=== PATIENT | male | born 1935 | race African-American/Black ===

== ENCOUNTER 2017-05-16 20:11 | Inpatient (IN) ==
[2017-05-16 22:22] LABS: INR 1.2; PT Patient Result 12.2 SECS; Partial Thromboplastin Time 28.5 SECS (0-40)
[2017-05-16 22:40] LABS: Basophils % 0.6 % (0.0-0.8); Eosinophils # 0.1 10*3/uL (0.0-0.87); Eosinophils % 2.2 % (0.00-10.9); Hematocrit 37.7 VOL% (42.0-52.0); Hemoglobin 11.8 GM/DL (14.0-18.0); Immature Granulocytes % 0.6 %; Immature Granulocytes Absolute 0.03 #; Lymphocytes # 0.7 10*3/uL (1.4-4.0); Lymphocytes % 12.4 % (21.2-54.2); Mean Corpuscular HGB Conc 31.3 GM/DL (32-36); Mean Corpuscular Hemoglobin 27 PG (27-34); Mean Corpuscular Volume 84.5 FL (87-102); Mean Platelet Volume 10.6 FL (9.6-12.0); Monocytes # 0.5 10*3/uL (0.11-0.8); Monocytes % 8.9 % (1.7-12.7); Neutrophils # 4.1 10*3/uL (1.4-7.4); Neutrophils % 75.3 % (38.7-73.9); Platelet Count 145 T/CUMM (130-400); Red Blood Count 4.46 MC/CUMM (3.8-5.5); Red Cell Distribution Width 19.8 % (9.3-17.3); White Blood Count 5.4 T/CUMM (4-12)
[2017-05-16 23:12] LABS: Bilirubin,Total 0.4 MG/DL (0.2-1.0); Calcium 9.2 MG/DL (8.5-10.1); Total Protein 7.1 G/DL (6.4-8.3)
[2017-05-16 23:13] LABS: Albumin 2.6 G/DL (3.4-5.0); CKMB % 1.3 %; Osmolality,Calculated 294.8 MOS/KG (273-304); Potassium 4.8 MMOL/L (3.5-5.1); Troponin I Only 0.285 NG/ML (0.00-0.045)
[2017-05-17 00:03] LABS: Anisocytosis 1+; Poikilocytosis 1+
[2017-05-17] MEDS ORDERED: NITROGLYCERIN 2% OINT 1 INCH/GM PACK TOP STA (01:28)
[2017-05-17] MEDS ORDERED: FUROSEMIDE 40 MG/4 ML VIAL IV ONE (01:28)
[2017-05-17] MEDS ORDERED: FUROSEMIDE 40 MG/4 ML VIAL ONE (02:18)
[2017-05-17] MEDS ORDERED: NITROGLYCERIN 2% OINT 1 INCH/GM PACK TOP ONE (02:18)
[2017-05-17] MEDS ORDERED: ENOXAPARIN 30 MG/0.3 ML SYRINGE ONE (05:12)
[2017-05-17] MEDS ORDERED: ASPIRIN 325 MG TABLET ONE (05:12)
[2017-05-17] MEDS ORDERED: ENOXAPARIN 30 MG/0.3 ML SYRINGE SUBCUT STA (05:23)
[2017-05-17] MEDS ORDERED: ASPIRIN 325 MG TABLET PO STA (05:24)
[2017-05-17] MEDS ORDERED: ACETAMINOPHEN 325 MG TABLET PO PRN (10:10)
[2017-05-17] MEDS ORDERED: ONDANSETRON 4 MG/2 ML VIAL IV PRN (10:10)
[2017-05-17] MEDS ORDERED: GLUCAGON 1 MG VIAL IM PRN (10:10)
[2017-05-17] MEDS ORDERED: MORPHINE 2 MG/1 ML SYRINGE IV PRN (10:10)
[2017-05-17] MEDS ORDERED: LEVOFLOXACIN INJ 750 MG in PREMIX 1 EACH IV SCH (12:00)
[2017-05-17] MEDS: DOCUSATE SODIUM 100 MG CAPSULE PO SCH ×2 (12:18→21:01)
[2017-05-17] MEDS: DOXAZOSIN 4 MG TABLET PO SCH (12:18)
[2017-05-17] MEDS: CARVEDILOL 25 MG TABLET PO SCH ×2 (12:18→21:01)
[2017-05-17] MEDS: OLMESARTAN 20 MG TABLET PO SCH (12:18)
[2017-05-17] MEDS: INSULIN REGULAR 100 UNIT/ML SUBCUT SCH ×4 (12:18→21:06)
[2017-05-17] MEDS: PANTOPRAZOLE 40 MG TABLET PO SCH (12:18)
[2017-05-17] MEDS: ENOXAPARIN 30 MG/0.3 ML SYRINGE SUBCUT SCH (12:20)
[2017-05-17] MEDS: MINOXIDIL 10 MG TABLET PO SCH (12:29)
[2017-05-17] MEDS: CALCIUM ACETATE 667 MG CAPSULE PO SCH ×2 (15:32→21:00)
[2017-05-17] MEDS: CINACALCET 30 MG TABLET PO SCH (21:00)
[2017-05-17] MEDS: ATORVASTATIN 10 MG TABLET PO SCH (21:01)
[2017-05-17] MEDS: BIMATOPROST 0.01% OPH SOLN 2.5 ML BOTTLE BOTH EYES SCH (21:04)
[2017-05-18 06:15] LABS: Risk Ratio 2.43
[2017-05-18] MEDS ORDERED: OLMESARTAN 20 MG TABLET PO SCH (09:00)
[2017-05-18] MEDS ORDERED: MINOXIDIL 10 MG TABLET PO SCH (09:00)
[2017-05-18] MEDS ORDERED: DOXAZOSIN 4 MG TABLET PO SCH (09:00)
[2017-05-18] MEDS: INSULIN REGULAR 100 UNIT/ML SUBCUT SCH ×4 (11:44→21:50)
[2017-05-18] MEDS: OLMESARTAN 20 MG TABLET PO SCH (11:55)
[2017-05-18] MEDS: CALCIUM ACETATE 667 MG CAPSULE PO SCH ×3 (11:55→21:50)
[2017-05-18] MEDS: CARVEDILOL 25 MG TABLET PO SCH ×2 (11:56→21:49)
[2017-05-18] MEDS: DOXAZOSIN 4 MG TABLET PO SCH (11:56)
[2017-05-18] MEDS: PANTOPRAZOLE 40 MG TABLET PO SCH (11:56)
[2017-05-18] MEDS: DOCUSATE SODIUM 100 MG CAPSULE PO SCH ×2 (11:56→21:48)
[2017-05-18] MEDS: MINOXIDIL 10 MG TABLET PO SCH (11:56)
[2017-05-18] MEDS: ENOXAPARIN 30 MG/0.3 ML SYRINGE SUBCUT SCH (11:57)
[2017-05-18] MEDS: CINACALCET 30 MG TABLET PO SCH (21:42)
[2017-05-18] MEDS: ATORVASTATIN 10 MG TABLET PO SCH (21:49)
[2017-05-18] MEDS: BIMATOPROST 0.01% OPH SOLN 2.5 ML BOTTLE BOTH EYES SCH (21:54)
[2017-05-19] MEDS: DEXTROSE 50% 25 GM/50 ML VIAL IV PRN ×2 (00:38→01:32)
[2017-05-19 06:17] LABS: Calcium 9.2 MG/DL (8.5-10.1); Magnesium 2.2 MG/DL (1.8-2.4); Osmolality,Calculated 280.8 MOS/KG (273-304); Potassium 4.4 MMOL/L (3.5-5.1)
[2017-05-19] MEDS ORDERED: VANCOMYCIN INJ 500 MG in SODIUM CHLORIDE 0.9% 100 ML IV PRN (08:12)
[2017-05-19] MEDS: INSULIN REGULAR 100 UNIT/ML SUBCUT SCH ×4 (08:31→23:24)
[2017-05-19] MEDS: DOXAZOSIN 4 MG TABLET PO SCH (09:44)
[2017-05-19] MEDS: MINOXIDIL 10 MG TABLET PO SCH (09:44)
[2017-05-19] MEDS: CALCIUM ACETATE 667 MG CAPSULE PO SCH ×3 (09:45→21:45)
[2017-05-19] MEDS: DOCUSATE SODIUM 100 MG CAPSULE PO SCH ×2 (09:45→21:40)
[2017-05-19] MEDS: PANTOPRAZOLE 40 MG TABLET PO SCH (09:45)
[2017-05-19] MEDS: CARVEDILOL 25 MG TABLET PO SCH ×2 (09:46→21:40)
[2017-05-19] MEDS: ENOXAPARIN 30 MG/0.3 ML SYRINGE SUBCUT SCH (09:46)
[2017-05-19] MEDS: OLMESARTAN 20 MG TABLET PO SCH (09:46)
[2017-05-19] MEDS ORDERED: VANCOMYCIN INJ 1,250 MG in SODIUM CHLORIDE 0.45% 250 ML IV ONE (10:00)
[2017-05-19] MEDS: LEVOFLOXACIN INJ 500 MG in PREMIX 1 EACH IV SCH (11:29)
[2017-05-19] MEDS: ATORVASTATIN 10 MG TABLET PO SCH (21:40)
[2017-05-19] MEDS: CINACALCET 30 MG TABLET PO SCH (21:44)
[2017-05-19] MEDS: BIMATOPROST 0.01% OPH SOLN 2.5 ML BOTTLE BOTH EYES SCH (21:48)
[2017-05-20] MEDS: INSULIN REGULAR 100 UNIT/ML SUBCUT SCH ×4 (08:10→20:45)
[2017-05-20] MEDS: DOXAZOSIN 4 MG TABLET PO SCH (08:10)
[2017-05-20] MEDS: MINOXIDIL 10 MG TABLET PO SCH (08:11)
[2017-05-20] MEDS: OLMESARTAN 20 MG TABLET PO SCH (08:11)
[2017-05-20] MEDS: PANTOPRAZOLE 40 MG TABLET PO SCH (08:11)
[2017-05-20] MEDS: DOCUSATE SODIUM 100 MG CAPSULE PO SCH ×2 (08:11→20:45)
[2017-05-20] MEDS: CARVEDILOL 25 MG TABLET PO SCH ×2 (08:11→20:45)
[2017-05-20] MEDS: ENOXAPARIN 30 MG/0.3 ML SYRINGE SUBCUT SCH (09:08)
[2017-05-20] MEDS: CALCIUM ACETATE 667 MG CAPSULE PO SCH ×3 (09:08→20:44)
[2017-05-20] MEDS: CINACALCET 30 MG TABLET PO SCH (20:44)
[2017-05-20] MEDS: ATORVASTATIN 10 MG TABLET PO SCH (20:45)
[2017-05-20] MEDS: BIMATOPROST 0.01% OPH SOLN 2.5 ML BOTTLE BOTH EYES SCH (20:51)
[2017-05-21] MEDS: INSULIN REGULAR 100 UNIT/ML SUBCUT SCH ×4 (08:38→20:34)
[2017-05-21] MEDS: DOCUSATE SODIUM 100 MG CAPSULE PO SCH ×2 (08:39→20:34)
[2017-05-21] MEDS: PANTOPRAZOLE 40 MG TABLET PO SCH (08:39)
[2017-05-21] MEDS: CALCIUM ACETATE 667 MG CAPSULE PO SCH ×3 (08:39→20:33)
[2017-05-21] MEDS: CARVEDILOL 25 MG TABLET PO SCH ×2 (08:39→20:34)
[2017-05-21] MEDS: DOXAZOSIN 4 MG TABLET PO SCH (08:39)
[2017-05-21] MEDS: OLMESARTAN 20 MG TABLET PO SCH (08:39)
[2017-05-21] MEDS: MINOXIDIL 10 MG TABLET PO SCH (08:43)
[2017-05-21] MEDS: ENOXAPARIN 30 MG/0.3 ML SYRINGE SUBCUT SCH (09:09)
[2017-05-21] MEDS: LEVOFLOXACIN INJ 500 MG in PREMIX 1 EACH IV SCH (12:28)
[2017-05-21 14:29] LABS: Basophils % 0.5 % (0.0-0.8); Eosinophils # 0.2 10*3/uL (0.0-0.87); Hematocrit 30.3 VOL% (42.0-52.0); Hemoglobin 9.5 GM/DL (14.0-18.0); Immature Granulocytes % 0.7 %; Immature Granulocytes Absolute 0.03 #; Lymphocytes # 0.7 10*3/uL (1.4-4.0); Lymphocytes % 16.1 % (21.2-54.2); Mean Corpuscular HGB Conc 31.4 GM/DL (32-36); Mean Corpuscular Hemoglobin 27 PG (27-34); Mean Corpuscular Volume 85.8 FL (87-102); Mean Platelet Volume 11.6 FL (9.6-12.0); Monocytes # 0.4 10*3/uL (0.11-0.8); Monocytes % 8.9 % (1.7-12.7); Neutrophils # 2.8 10*3/uL (1.4-7.4); Neutrophils % 69.8 % (38.7-73.9); Platelet Count 116 T/CUMM (130-400); Red Blood Count 3.53 MC/CUMM (3.8-5.5)
[2017-05-21 14:50] LABS: Albumin 2.5 G/DL (3.4-5.0); Bilirubin,Total 0.4 MG/DL (0.2-1.0); Calcium 7.9 MG/DL (8.5-10.1); Potassium 4.6 MMOL/L (3.5-5.1); Total Protein 7.1 G/DL (6.4-8.3)
[2017-05-21] MEDS: ASPIRIN EC 81 MG TABLET PO SCH (17:37)
[2017-05-21] MEDS: CINACALCET 30 MG TABLET PO SCH (20:33)
[2017-05-21] MEDS: ATORVASTATIN 80 MG TABLET PO SCH (20:34)
[2017-05-21] MEDS: BIMATOPROST 0.01% OPH SOLN 2.5 ML BOTTLE BOTH EYES SCH (20:36)
[2017-05-21] MEDS: DEXTROSE 50% 25 GM/50 ML VIAL IV PRN (23:04)
[2017-05-22] MEDS: INSULIN REGULAR 100 UNIT/ML SUBCUT SCH ×4 (11:33→22:04)
[2017-05-22] MEDS ORDERED: VANCOMYCIN INJ 500 MG in SODIUM CHLORIDE 0.9% 100 ML IV ONE (12:00)
[2017-05-22] MEDS: CALCIUM ACETATE 667 MG CAPSULE PO SCH ×3 (14:28→21:58)
[2017-05-22] MEDS: DOXAZOSIN 4 MG TABLET PO SCH (16:02)
[2017-05-22] MEDS: DOCUSATE SODIUM 100 MG CAPSULE PO SCH ×2 (16:03→21:58)
[2017-05-22] MEDS: MINOXIDIL 10 MG TABLET PO SCH (16:03)
[2017-05-22] MEDS: OLMESARTAN 20 MG TABLET PO SCH (16:03)
[2017-05-22] MEDS: PANTOPRAZOLE 40 MG TABLET PO SCH (16:04)
[2017-05-22] MEDS: ENOXAPARIN 30 MG/0.3 ML SYRINGE SUBCUT SCH (16:04)
[2017-05-22] MEDS: ASPIRIN EC 81 MG TABLET PO SCH (16:04)
[2017-05-22] MEDS: CARVEDILOL 25 MG TABLET PO SCH (16:06)
[2017-05-22] MEDS: ATORVASTATIN 80 MG TABLET PO SCH (21:58)
[2017-05-22] MEDS: CINACALCET 30 MG TABLET PO SCH (21:59)
[2017-05-22] MEDS: BIMATOPROST 0.01% OPH SOLN 2.5 ML BOTTLE BOTH EYES SCH (22:02)
[2017-05-23] MEDS: CARVEDILOL 25 MG TABLET PO SCH ×3 (05:33→22:06)
[2017-05-23] MEDS: MINOXIDIL 10 MG TABLET PO SCH (09:40)
[2017-05-23] MEDS: OLMESARTAN 20 MG TABLET PO SCH (09:40)
[2017-05-23] MEDS: DOXAZOSIN 4 MG TABLET PO SCH (09:40)
[2017-05-23] MEDS: CALCIUM ACETATE 667 MG CAPSULE PO SCH ×3 (09:41→21:37)
[2017-05-23] MEDS: PANTOPRAZOLE 40 MG TABLET PO SCH (09:41)
[2017-05-23] MEDS: DOCUSATE SODIUM 100 MG CAPSULE PO SCH ×2 (09:41→21:35)
[2017-05-23] MEDS: INSULIN REGULAR 100 UNIT/ML SUBCUT SCH ×4 (09:42→22:06)
[2017-05-23] MEDS: ASPIRIN EC 81 MG TABLET PO SCH (09:42)
[2017-05-23] MEDS: LEVOFLOXACIN INJ 500 MG in PREMIX 1 EACH IV SCH (13:43)
[2017-05-23] MEDS: CINACALCET 30 MG TABLET PO SCH (21:36)
[2017-05-23] MEDS: ATORVASTATIN 80 MG TABLET PO SCH (21:36)
[2017-05-23] MEDS: BIMATOPROST 0.01% OPH SOLN 2.5 ML BOTTLE BOTH EYES SCH (21:39)
[2017-05-24] MEDS: CARVEDILOL 25 MG TABLET PO SCH ×2 (10:48→20:57)
[2017-05-24] MEDS: DOCUSATE SODIUM 100 MG CAPSULE PO SCH ×2 (10:48→20:56)
[2017-05-24] MEDS: PANTOPRAZOLE 40 MG TABLET PO SCH (10:48)
[2017-05-24] MEDS: MINOXIDIL 10 MG TABLET PO SCH (10:48)
[2017-05-24] MEDS: ASPIRIN EC 81 MG TABLET PO SCH (10:48)
[2017-05-24] MEDS: CALCIUM ACETATE 667 MG CAPSULE PO SCH ×3 (10:48→20:56)
[2017-05-24] MEDS: DOXAZOSIN 4 MG TABLET PO SCH (10:48)
[2017-05-24] MEDS: OLMESARTAN 20 MG TABLET PO SCH (10:48)
[2017-05-24] MEDS: INSULIN REGULAR 100 UNIT/ML SUBCUT SCH ×4 (10:48→21:14)
[2017-05-24] MEDS: BIMATOPROST 0.01% OPH SOLN 2.5 ML BOTTLE BOTH EYES SCH (20:56)
[2017-05-24] MEDS: ATORVASTATIN 80 MG TABLET PO SCH (20:56)
[2017-05-24] MEDS: CINACALCET 30 MG TABLET PO SCH (20:57)
[2017-05-25] MEDS: INSULIN REGULAR 100 UNIT/ML SUBCUT SCH ×4 (07:30→21:57)
[2017-05-25] MEDS: MINOXIDIL 10 MG TABLET PO SCH (09:49)
[2017-05-25] MEDS: OLMESARTAN 20 MG TABLET PO SCH (09:49)
[2017-05-25] MEDS: PANTOPRAZOLE 40 MG TABLET PO SCH (09:49)
[2017-05-25] MEDS: DOXAZOSIN 4 MG TABLET PO SCH (09:49)
[2017-05-25] MEDS: ASPIRIN EC 81 MG TABLET PO SCH (09:49)
[2017-05-25] MEDS: CALCIUM ACETATE 667 MG CAPSULE PO SCH ×3 (09:49→21:58)
[2017-05-25] MEDS: CARVEDILOL 25 MG TABLET PO SCH ×2 (09:50→21:59)
[2017-05-25] MEDS: DOCUSATE SODIUM 100 MG CAPSULE PO SCH ×2 (09:50→21:59)
[2017-05-25] MEDS: LEVOFLOXACIN INJ 500 MG in PREMIX 1 EACH IV SCH (12:00)
[2017-05-25] MEDS: ATORVASTATIN 80 MG TABLET PO SCH (21:59)
[2017-05-25] MEDS: CINACALCET 30 MG TABLET PO SCH (22:00)
[2017-05-25] MEDS: BIMATOPROST 0.01% OPH SOLN 2.5 ML BOTTLE BOTH EYES SCH (22:02)
[2017-05-26] MEDS: INSULIN REGULAR 100 UNIT/ML SUBCUT SCH ×4 (08:06→20:32)
[2017-05-26] MEDS: CARVEDILOL 25 MG TABLET PO SCH ×2 (10:18→21:04)
[2017-05-26] MEDS: CALCIUM ACETATE 667 MG CAPSULE PO SCH ×3 (10:19→21:05)
[2017-05-26] MEDS: PANTOPRAZOLE 40 MG TABLET PO SCH (10:19)
[2017-05-26] MEDS: DOXAZOSIN 4 MG TABLET PO SCH (10:19)
[2017-05-26] MEDS: MINOXIDIL 10 MG TABLET PO SCH (10:19)
[2017-05-26] MEDS: DOCUSATE SODIUM 100 MG CAPSULE PO SCH ×2 (10:19→21:05)
[2017-05-26] MEDS: OLMESARTAN 20 MG TABLET PO SCH (10:19)
[2017-05-26] MEDS: CLOPIDOGREL 75 MG TABLET PO SCH (10:19)
[2017-05-26] MEDS: BIMATOPROST 0.01% OPH SOLN 2.5 ML BOTTLE BOTH EYES SCH (21:05)
[2017-05-26] MEDS: ATORVASTATIN 80 MG TABLET PO SCH (21:05)
[2017-05-26] MEDS: CINACALCET 30 MG TABLET PO SCH (21:05)
[2017-05-27] MEDS ORDERED: CARVEDILOL 12.5 MG TABLET PO SCH (07:53)
[2017-05-27] MEDS: INSULIN REGULAR 100 UNIT/ML SUBCUT SCH ×2 (10:58→13:42)
[2017-05-27] MEDS ORDERED: TUBERCULIN SKIN TEST 0.1 ML SYRINGE INTRADERM ONE (12:38)
[2017-05-27] MEDS: DOXAZOSIN 4 MG TABLET PO SCH (13:23)
[2017-05-27] MEDS: PANTOPRAZOLE 40 MG TABLET PO SCH (13:24)
[2017-05-27] MEDS: DOCUSATE SODIUM 100 MG CAPSULE PO SCH (13:24)
[2017-05-27] MEDS: MINOXIDIL 10 MG TABLET PO SCH (13:24)
[2017-05-27] MEDS: CALCIUM ACETATE 667 MG CAPSULE PO SCH (13:24)
[2017-05-27] MEDS: OLMESARTAN 20 MG TABLET PO SCH (13:24)
[2017-05-27] MEDS: CLOPIDOGREL 75 MG TABLET PO SCH (13:24)
[2017-05-27 13:41] VITALS: BP 133/60
[2017-05-27] MEDS: LEVOFLOXACIN INJ 500 MG in PREMIX 1 EACH IV SCH (13:43)
[2017-05-27 16:08] LABS: Hepatitis B Surface Ag Quant < 0.10 Index; Hepatitis B Surface Ag Result Negative (Negative)
== END 2017-05-27 15:11 | disposition swing bed (61) | DRG 682 ==
LOC: N.ED 20:11 → SUATTDRO 05-17 01:44 → N.EDINP 05-17 01:44 → N.4E 05-17 09:45
PROVIDERS: ADMIT Internal Medicine Infectious Disease; ATTEND Internal Medicine

== ENCOUNTER 2017-05-30 12:06 | Inpatient (IN) ==
[2017-05-30] MEDS ORDERED: SODIUM CHLORIDE 0.9% 250 ML IV STA (13:45)
[2017-05-30 13:55] LABS: Basophils % 0.5 % (0.0-0.8); Eosinophils # 0.1 10*3/uL (0.0-0.87); Eosinophils % 1.6 % (0.00-10.9); Hematocrit 29.8 VOL% (42.0-52.0); Hemoglobin 9.2 GM/DL (14.0-18.0); Immature Granulocytes % 0.5 %; Immature Granulocytes Absolute 0.02 #; Lymphocytes # 0.5 10*3/uL (1.4-4.0); Lymphocytes % 12.6 % (21.2-54.2); Mean Corpuscular HGB Conc 30.9 GM/DL (32-36); Mean Corpuscular Hemoglobin 27 PG (27-34); Mean Corpuscular Volume 86.1 FL (87-102); Mean Platelet Volume 11.3 FL (9.6-12.0); Monocytes # 0.5 10*3/uL (0.11-0.8); Monocytes % 10.7 % (1.7-12.7); Neutrophils # 3.2 10*3/uL (1.4-7.4); Neutrophils % 74.1 % (38.7-73.9); Platelet Count 111 T/CUMM (130-400); Red Blood Count 3.46 MC/CUMM (3.8-5.5); Red Cell Distribution Width 19.6 % (9.3-17.3); White Blood Count 4.3 T/CUMM (4-12)
[2017-05-30 14:02] LABS: INR 1.2; PT Patient Result 12.2 SECS
[2017-05-30 14:18] LABS: Albumin 2.7 G/DL (3.4-5.0); Bilirubin,Total 0.4 MG/DL (0.2-1.0); Calcium 8.2 MG/DL (8.5-10.1); Magnesium 2.1 MG/DL (1.8-2.4); Osmolality,Calculated 281.1 MOS/KG (273-304); Potassium 4.7 MMOL/L (3.5-5.1); Total Protein 7.5 G/DL (6.4-8.3)
[2017-05-30 14:35] LABS: Troponin I Only 0.591 NG/ML (0.00-0.045)
[2017-05-30] MEDS ORDERED: ALBUTEROL 2.5 MG/3 ML NEB RESP TX PRN (17:21)
[2017-05-30] MEDS ORDERED: ONDANSETRON 4 MG/2 ML VIAL IV PRN (17:21)
[2017-05-30] MEDS ORDERED: GLUCAGON 1 MG VIAL IM PRN (17:31)
[2017-05-30] MEDS: SODIUM CHLORIDE 0.9% 1,000 ML IV SCH (19:56)
[2017-05-30] MEDS: INSULIN REGULAR 100 UNIT/ML SUBCUT SCH (20:40)
[2017-05-30] MEDS: PANTOPRAZOLE 40 MG VIAL IV SCH (21:16)
[2017-05-31] MEDS: INSULIN REGULAR 100 UNIT/ML SUBCUT SCH ×4 (00:22→18:48)
[2017-05-31] MEDS: DOPamine 800 MG/250 ML PREMIX IV SCH ×2 (00:22→21:29)
[2017-05-31 00:53] LABS: ABG Base Excess -1.8 MMOL/L (-2.5-2.5); ABG HCO3 22.2 MMOL/L (20-26); ABG Oxygen Saturation 94.8 % (95-100); ABG PCO2 34.5 MM HG (35-48); ABG PH 7.426 (7.35-7.45); ABG PO2 85.9 MM HG (80-95); ABG TCO2 23.2 MMOL/L (23-27)
[2017-05-31 01:34] LABS: Basophils % 0.2 % (0.0-0.8); Eosinophils % 0.1 % (0.00-10.9); Hematocrit 29.1 VOL% (42.0-52.0); Hemoglobin 8.8 GM/DL (14.0-18.0); Immature Granulocytes % 1.1 %; Immature Granulocytes Absolute 0.09 #; Lymphocytes # 0.4 10*3/uL (1.4-4.0); Lymphocytes % 4.8 % (21.2-54.2); Mean Corpuscular HGB Conc 30.2 GM/DL (32-36); Mean Corpuscular Hemoglobin 26 PG (27-34); Mean Corpuscular Volume 87.1 FL (87-102); Mean Platelet Volume 11.6 FL (9.6-12.0); Monocytes # 0.8 10*3/uL (0.11-0.8); Monocytes % 9.9 % (1.7-12.7); Neutrophils # 6.7 10*3/uL (1.4-7.4); Neutrophils % 83.9 % (38.7-73.9); Platelet Count 98 T/CUMM (130-400); Red Blood Count 3.34 MC/CUMM (3.8-5.5); Red Cell Distribution Width 19.6 % (9.3-17.3); White Blood Count 8.1 T/CUMM (4-12)
[2017-05-31 01:42] LABS: CKMB % 0.9 %
[2017-05-31 01:54] LABS: Albumin 2.9 G/DL (3.4-5.0); Bilirubin,Total 0.8 MG/DL (0.2-1.0); Calcium 7.6 MG/DL (8.5-10.1); Potassium 5.5 MMOL/L (3.5-5.1); Risk Ratio 1.89; Total Protein 7.4 G/DL (6.4-8.3); VLDL CHOLESTEROL 15.6 MG/DL
[2017-05-31 02:00] LABS: Troponin I Only 1.12 NG/ML (0.00-0.045)
[2017-05-31 02:59] LABS: Band Neutrophils 13 % (0-10); Lymphocytes 4 % (20-55); Poikilocytosis 2+; Segmented Neutrophils 74 % (50-85); Total Cells Counted 100
[2017-05-31 03:00] LABS: Acanthocytes 1+; Anisocytosis 1+
[2017-05-31] MEDS: SODIUM CHLORIDE 0.9% 1,000 ML IV SCH ×2 (07:49→09:36)
[2017-05-31] MEDS: CALCIUM ACETATE 667 MG CAPSULE PO SCH ×3 (08:02→18:04)
[2017-05-31] MEDS ORDERED: OLMESARTAN 20 MG TABLET PO SCH (09:00)
[2017-05-31] MEDS ORDERED: MINOXIDIL 10 MG TABLET PO SCH (09:00)
[2017-05-31] MEDS: ASPIRIN EC 81 MG TABLET PO SCH (09:36)
[2017-05-31 10:12] LABS: Troponin I Only 2.79 NG/ML (0.00-0.045)
[2017-05-31 13:45] LABS: Troponin I Only 2.86 NG/ML (0.00-0.045)
[2017-05-31 14:25] LABS: Hepatitis A Ab IgM Quant 0.09 Index; Hepatitis A Ab IgM Result Negative (Negative); Hepatitis B Core IgM Quant 0.08 Index; Hepatitis B Core IgM Result Negative (Negative); Hepatitis B Surface Ag Quant < 0.10 Index; Hepatitis B Surface Ag Result Negative (Negative); Hepatitis C Virus Ab Quant 0.03 Index; Hepatitis C Virus Ab Result Negative (Negative)
[2017-05-31] MEDS: PANTOPRAZOLE 40 MG VIAL IV SCH (18:30)
[2017-06-01] MEDS: DOPamine 800 MG/250 ML PREMIX IV SCH (01:44)
[2017-06-01] MEDS: INSULIN REGULAR 100 UNIT/ML SUBCUT SCH ×4 (01:44→19:11)
[2017-06-01 03:47] LABS: Basophils % 0.1 % (0.0-0.8); Eosinophils # 0.1 10*3/uL (0.0-0.87); Eosinophils % 1.5 % (0.00-10.9); Hematocrit 28.5 VOL% (42.0-52.0); Hemoglobin 9.3 GM/DL (14.0-18.0); Immature Granulocytes % 0.7 %; Immature Granulocytes Absolute 0.05 #; Lymphocytes # 0.4 10*3/uL (1.4-4.0); Lymphocytes % 6.6 % (21.2-54.2); Mean Corpuscular HGB Conc 32.6 GM/DL (32-36); Mean Corpuscular Hemoglobin 27 PG (27-34); Mean Corpuscular Volume 83.1 FL (87-102); Monocytes # 0.5 10*3/uL (0.11-0.8); Monocytes % 6.7 % (1.7-12.7); NRBC # 0.03 10*3/uL; Neutrophils # 5.6 10*3/uL (1.4-7.4); Neutrophils % 84.4 % (38.7-73.9); Red Blood Count 3.43 MC/CUMM (3.8-5.5); Red Cell Distribution Width 19.9 % (9.3-17.3); White Blood Count 6.7 T/CUMM (4-12)
[2017-06-01 03:57] LABS: Platelet Count 109 T/CUMM (130-400)
[2017-06-01] MEDS: SODIUM CHLORIDE 0.9% 1,000 ML IV SCH ×2 (04:09→06:34)
[2017-06-01 04:20] LABS: Osmolality,Calculated 289.1 MOS/KG (273-304); Potassium 5.7 MMOL/L (3.5-5.1)
[2017-06-01 04:28] LABS: Albumin 2.8 G/DL (3.4-5.0); Bilirubin,Direct 0.21 MG/DL (0.0-0.20); Bilirubin,Total 1.2 MG/DL (0.2-1.0); Total Protein 7.2 G/DL (6.4-8.3)
[2017-06-01 04:50] LABS: Burr Cells 1+; Platelet Estimate Normal
[2017-06-01 04:51] LABS: Hypochromasia Slight; Ovalocytes 1+
[2017-06-01 04:56] LABS: Calcium 6.9 MG/DL (8.5-10.1); Osmolality,Calculated 293.8 MOS/KG (273-304); Potassium 5.8 MMOL/L (3.5-5.1)
[2017-06-01] MEDS: DEXTROSE 50% 25 GM/50 ML VIAL IV PRN (06:24)
[2017-06-01] MEDS: ASPIRIN EC 81 MG TABLET PO SCH (08:59)
[2017-06-01] MEDS: CALCIUM ACETATE 667 MG CAPSULE PO SCH ×3 (08:59→18:30)
[2017-06-01] MEDS: PANTOPRAZOLE 40 MG VIAL IV SCH (18:31)
[2017-06-02] MEDS: INSULIN REGULAR 100 UNIT/ML SUBCUT SCH ×4 (01:12→18:23)
[2017-06-02] MEDS: SODIUM CHLORIDE 0.9% 1,000 ML IV SCH ×3 (01:33→21:35)
[2017-06-02] MEDS: DOPamine 800 MG/250 ML PREMIX IV SCH (02:50)
[2017-06-02 07:53] LABS: Calcium 7.2 MG/DL (8.5-10.1); Osmolality,Calculated 284.1 MOS/KG (273-304); Potassium 5.1 MMOL/L (3.5-5.1)
[2017-06-02 08:20] LABS: Basophils % 0.2 % (0.0-0.8); Eosinophils # 0.1 10*3/uL (0.0-0.87); Eosinophils % 2.2 % (0.00-10.9); Hematocrit 27.7 VOL% (42.0-52.0); Immature Granulocytes % 0.6 %; Immature Granulocytes Absolute 0.03 #; Lymphocytes # 0.4 10*3/uL (1.4-4.0); Lymphocytes % 7.4 % (21.2-54.2); Mean Corpuscular HGB Conc 32.5 GM/DL (32-36); Mean Corpuscular Hemoglobin 27 PG (27-34); Mean Corpuscular Volume 83.4 FL (87-102); Mean Platelet Volume 11.3 FL (9.6-12.0); Monocytes # 0.4 10*3/uL (0.11-0.8); Neutrophils # 4.5 10*3/uL (1.4-7.4); Neutrophils % 82.6 % (38.7-73.9); Platelet Count 101 T/CUMM (130-400); Red Blood Count 3.32 MC/CUMM (3.8-5.5); Red Cell Distribution Width 19.5 % (9.3-17.3); White Blood Count 5.4 T/CUMM (4-12)
[2017-06-02] MEDS: CALCIUM ACETATE 667 MG CAPSULE PO SCH ×3 (08:52→16:22)
[2017-06-02] MEDS: ASPIRIN EC 81 MG TABLET PO SCH (08:52)
[2017-06-02] MEDS: PANTOPRAZOLE 40 MG VIAL IV SCH (16:30)
[2017-06-03] MEDS: DOPamine 800 MG/250 ML PREMIX IV SCH (00:04)
[2017-06-03] MEDS: INSULIN REGULAR 100 UNIT/ML SUBCUT SCH ×5 (00:04→23:43)
[2017-06-03 05:11] LABS: Basophils % 0.3 % (0.0-0.8); Eosinophils # 0.1 10*3/uL (0.0-0.87); Eosinophils % 1.2 % (0.00-10.9); Hematocrit 28.6 VOL% (42.0-52.0); Hemoglobin 8.8 GM/DL (14.0-18.0); Immature Granulocytes Absolute 0.06 #; Lymphocytes # 0.9 10*3/uL (1.4-4.0); Lymphocytes % 16.2 % (21.2-54.2); Mean Corpuscular HGB Conc 30.8 GM/DL (32-36); Mean Corpuscular Hemoglobin 27 PG (27-34); Mean Corpuscular Volume 86.4 FL (87-102); Monocytes # 0.4 10*3/uL (0.11-0.8); Monocytes % 6.8 % (1.7-12.7); NRBC # 0.04 10*3/uL; Neutrophils # 4.3 10*3/uL (1.4-7.4); Neutrophils % 74.5 % (38.7-73.9); Red Blood Count 3.31 MC/CUMM (3.8-5.5); Red Cell Distribution Width 19.9 % (9.3-17.3); White Blood Count 5.7 T/CUMM (4-12)
[2017-06-03 05:17] LABS: Platelet Count 67 T/CUMM (130-400)
[2017-06-03 05:44] LABS: Hypochromasia 1+; Microcytosis 1+; Spherocytes Slight
[2017-06-03 05:45] LABS: Acanthocytes Few; Burr Cells Slight; Ovalocytes Slight; Platelet Estimate Decreased
[2017-06-03 05:47] LABS: Albumin 2.7 G/DL (3.4-5.0); Bilirubin,Total 1.1 MG/DL (0.2-1.0); Total Protein 7.7 G/DL (6.4-8.3)
[2017-06-03 05:50] LABS: Magnesium 2.2 MG/DL (1.8-2.4)
[2017-06-03 05:53] LABS: Potassium 6.3 MMOL/L (3.5-5.1)
[2017-06-03 05:54] LABS: Potassium 6.3 MMOL/L (3.5-5.1)
[2017-06-03] MEDS ORDERED: SODIUM POLYSTYRENE SULFATE 15 GM/60 ML BOTTLE ONE (06:02)
[2017-06-03] MEDS ORDERED: SODIUM POLYSTYRENE SULFATE 15 GM/60 ML BOTTLE PO STA (06:16)
[2017-06-03] MEDS: DEXTROSE 50% 25 GM/50 ML VIAL IV PRN ×2 (06:45→17:25)
[2017-06-03] MEDS: CALCIUM ACETATE 667 MG CAPSULE PO SCH ×3 (10:04→18:33)
[2017-06-03] MEDS: ASPIRIN EC 81 MG TABLET PO SCH (10:04)
[2017-06-03 13:06] LABS: Free T4 (Free Thyroxine) 1.04 NG/DL (0.76-1.46); Thyroid Stimulating Hormone 10.9 uIU/ml (0.358-3.74)
[2017-06-03] MEDS: PANTOPRAZOLE 40 MG VIAL IV SCH (18:30)
[2017-06-03] MEDS: SODIUM CHLORIDE 0.9% 1,000 ML IV SCH (19:12)
[2017-06-04 06:02] LABS: Basophils % 0.6 % (0.0-0.8); Eosinophils # 0.2 10*3/uL (0.0-0.87); Eosinophils % 3.4 % (0.00-10.9); Hematocrit 26.3 VOL% (42.0-52.0); Hemoglobin 8.4 GM/DL (14.0-18.0); Immature Granulocytes % 0.8 %; Immature Granulocytes Absolute 0.04 #; Lymphocytes # 0.6 10*3/uL (1.4-4.0); Mean Corpuscular HGB Conc 31.9 GM/DL (32-36); Mean Corpuscular Hemoglobin 27 PG (27-34); Mean Corpuscular Volume 84.3 FL (87-102); Mean Platelet Volume 10.3 FL (9.6-12.0); Monocytes # 0.4 10*3/uL (0.11-0.8); Monocytes % 8.3 % (1.7-12.7); Neutrophils % 75.9 % (38.7-73.9); Red Blood Count 3.12 MC/CUMM (3.8-5.5); White Blood Count 5.3 T/CUMM (4-12)
[2017-06-04 06:03] LABS: Platelet Count 76 T/CUMM (130-400)
[2017-06-04 06:18] LABS: Giant Platelets Few; Hypochromasia 1+; Ovalocytes Slight; Platelet Estimate Decreased
[2017-06-04 06:19] LABS: Microcytosis Slight
[2017-06-04] MEDS: INSULIN REGULAR 100 UNIT/ML SUBCUT SCH ×3 (06:22→23:57)
[2017-06-04 06:26] LABS: Calcium 8.9 MG/DL (8.5-10.1); Magnesium 2.2 MG/DL (1.8-2.4); Osmolality,Calculated 288.4 MOS/KG (273-304); Potassium 4.1 MMOL/L (3.5-5.1)
[2017-06-04] MEDS: LEVOTHYROXINE 50 MCG TABLET PO SCH (06:26)
[2017-06-04] MEDS ORDERED: VANCOMYCIN INJ 1,000 MG in SODIUM CHLORIDE 0.9% 250 ML IV ONE (07:00)
[2017-06-04] MEDS: CALCIUM ACETATE 667 MG CAPSULE PO SCH ×3 (08:53→17:56)
[2017-06-04] MEDS: ASPIRIN EC 81 MG TABLET PO SCH (08:54)
[2017-06-04] MEDS: DEXTROSE 50% 25 GM/50 ML VIAL IV PRN (09:45)
[2017-06-04] MEDS ORDERED: SKIN HEALING OINT (AQUAPHOR) 50 GM TUBE TOP PRN (10:20)
[2017-06-04] MEDS ORDERED: HEPARIN/NACL 0.9% 2 UNITS/ML 2,000 ML IV ONE (10:56)
[2017-06-04] MEDS ORDERED: LIDOCAINE 1% 20 ML VIAL ONE (10:56)
[2017-06-04] MEDS ORDERED: VANCOMYCIN 500 MG VIAL ONE (11:26)
[2017-06-04] MEDS ORDERED: HEPARIN/NACL 0.9% 2 UNITS/ML 1,000 ML IV ONE (12:23)
[2017-06-04] MEDS ORDERED: oxyCODONE/ACETAMINOPHEN 5-325 MG TABLET PO PRN (13:14)
[2017-06-04] MEDS ORDERED: PROPOFOL 200 MG/20 ML VIAL IV ONE (14:18)
[2017-06-04] MEDS ORDERED: PHENYLEPHRINE DRIP 20 MG/250 ML PREMIX IV ONE (14:18)
[2017-06-04] MEDS ORDERED: ePHEDrine 50 MG/ML AMP ONE (14:18)
[2017-06-04] MEDS ORDERED: MIDAZOLAM 2 MG/2 ML VIAL ONE (14:18)
[2017-06-04] MEDS ORDERED: fentaNYL 100 MCG/2 ML VIAL ONE (14:18)
[2017-06-04] MEDS ORDERED: SODIUM CHLORIDE 0.9% 250 ML IV ONE (14:19)
[2017-06-04] MEDS ORDERED: KETAMINE 500 MG/10 ML VIAL ONE (14:19)
[2017-06-04] MEDS ORDERED: LEVOTHYROXINE 50 MCG TABLET PO ONE (14:28)
[2017-06-04] MEDS ORDERED: HALOPERIDOL 5 MG/ML AMP ONE (16:49)
[2017-06-04] MEDS: PANTOPRAZOLE 40 MG VIAL IV SCH (17:57)
[2017-06-05 04:43] LABS: Basophils % 0.5 % (0.0-0.8); Eosinophils # 0.1 10*3/uL (0.0-0.87); Eosinophils % 2.3 % (0.00-10.9); Hematocrit 21.8 VOL% (42.0-52.0); Immature Granulocytes % 1.5 %; Immature Granulocytes Absolute 0.09 #; Lymphocytes # 0.7 10*3/uL (1.4-4.0); Lymphocytes % 11.3 % (21.2-54.2); Mean Corpuscular HGB Conc 32.1 GM/DL (32-36); Mean Corpuscular Hemoglobin 27 PG (27-34); Mean Corpuscular Volume 84.8 FL (87-102); Mean Platelet Volume 10.7 FL (9.6-12.0); Monocytes # 0.6 10*3/uL (0.11-0.8); Monocytes % 9.3 % (1.7-12.7); Neutrophils # 4.5 10*3/uL (1.4-7.4); Neutrophils % 75.1 % (38.7-73.9); Platelet Count 74 T/CUMM (130-400); Red Blood Count 2.57 MC/CUMM (3.8-5.5); Red Cell Distribution Width 20.3 % (9.3-17.3)
[2017-06-05 04:44] LABS: Calcium 8.7 MG/DL (8.5-10.1); Magnesium 2.1 MG/DL (1.8-2.4); Osmolality,Calculated 298.1 MOS/KG (273-304); Potassium 4.4 MMOL/L (3.5-5.1)
[2017-06-05 05:00] LABS: Giant Platelets Few; Hypochromasia 1+; Microcytosis Slight; Ovalocytes Slight; Platelet Estimate Decreased
[2017-06-05] MEDS: INSULIN REGULAR 100 UNIT/ML SUBCUT SCH ×4 (05:03→22:21)
[2017-06-05] MEDS: LEVOTHYROXINE 50 MCG TABLET PO SCH (06:30)
[2017-06-05] MEDS: CALCIUM ACETATE 667 MG CAPSULE PO SCH ×3 (07:59→17:39)
[2017-06-05] MEDS: ASPIRIN EC 81 MG TABLET PO SCH (07:59)
[2017-06-05] MEDS ORDERED: DOXAZOSIN 4 MG TABLET PO SCH (09:00)
[2017-06-05] MEDS: DOXAZOSIN 4 MG TABLET PO SCH (09:09)
[2017-06-05] MEDS: METOPROLOL TARTRATE 25 MG TABLET PO SCH ×2 (10:46→21:32)
[2017-06-05] MEDS: PANTOPRAZOLE 40 MG VIAL IV SCH (17:39)
[2017-06-05] MEDS: CINACALCET 30 MG TABLET PO SCH (21:32)
[2017-06-05] MEDS: ATORVASTATIN 10 MG TABLET PO SCH (21:32)
[2017-06-05] MEDS: BIMATOPROST 0.01% OPH SOLN 2.5 ML BOTTLE BOTH EYES SCH (22:30)
[2017-06-06 05:03] LABS: Basophils % 0.2 % (0.0-0.8); Eosinophils # 0.1 10*3/uL (0.0-0.87); Eosinophils % 2.2 % (0.00-10.9); Immature Granulocytes % 1.4 %; Immature Granulocytes Absolute 0.08 #; Lymphocytes # 0.6 10*3/uL (1.4-4.0); Lymphocytes % 11.2 % (21.2-54.2); Mean Corpuscular Hemoglobin 27 PG (27-34); Mean Corpuscular Volume 86.2 FL (87-102); Mean Platelet Volume 12.6 FL (9.6-12.0); Monocytes # 0.6 10*3/uL (0.11-0.8); Monocytes % 10.9 % (1.7-12.7); Neutrophils # 4.1 10*3/uL (1.4-7.4); Neutrophils % 74.1 % (38.7-73.9); Red Blood Count 2.32 MC/CUMM (3.8-5.5); Red Cell Distribution Width 20.5 % (9.3-17.3); White Blood Count 5.5 T/CUMM (4-12)
[2017-06-06 05:24] LABS: Platelet Count 69 T/CUMM (130-400)
[2017-06-06 05:26] LABS: Hemoglobin 6.2 GM/DL (14.0-18.0)
[2017-06-06 05:34] LABS: Calcium 8.1 MG/DL (8.5-10.1); Magnesium 2.1 MG/DL (1.8-2.4); Potassium 4.5 MMOL/L (3.5-5.1)
[2017-06-06] MEDS ORDERED: SODIUM CHLORIDE 0.9% 1,000 ML IV PRN (05:37)
[2017-06-06 05:55] LABS: Hypochromasia 1+; Microcytosis 1+; Ovalocytes Slight; Platelet Estimate Decreased; Target Cells Slight
[2017-06-06 05:56] LABS: Tear Drop Cells Slight
[2017-06-06] MEDS: LEVOTHYROXINE 50 MCG TABLET PO SCH (05:57)
[2017-06-06] MEDS: INSULIN REGULAR 100 UNIT/ML SUBCUT SCH ×4 (08:40→22:25)
[2017-06-06] MEDS: CALCIUM ACETATE 667 MG CAPSULE PO SCH ×3 (08:40→16:53)
[2017-06-06] MEDS: ASPIRIN EC 81 MG TABLET PO SCH (13:13)
[2017-06-06] MEDS: DOXAZOSIN 4 MG TABLET PO SCH (13:14)
[2017-06-06] MEDS: METOPROLOL TARTRATE 25 MG TABLET PO SCH ×2 (13:14→21:55)
[2017-06-06] MEDS: PANTOPRAZOLE 40 MG VIAL IV SCH (16:52)
[2017-06-06] MEDS: ATORVASTATIN 10 MG TABLET PO SCH (21:55)
[2017-06-06] MEDS: CINACALCET 30 MG TABLET PO SCH (21:55)
[2017-06-06] MEDS: BIMATOPROST 0.01% OPH SOLN 2.5 ML BOTTLE BOTH EYES SCH (22:25)
[2017-06-07 05:33] LABS: Basophils % 0.3 % (0.0-0.8); Eosinophils # 0.2 10*3/uL (0.0-0.87); Eosinophils % 2.6 % (0.00-10.9); Hematocrit 24.8 VOL% (42.0-52.0); Hemoglobin 7.7 GM/DL (14.0-18.0); Immature Granulocytes % 1.4 %; Immature Granulocytes Absolute 0.08 #; Lymphocytes # 0.6 10*3/uL (1.4-4.0); Lymphocytes % 10.6 % (21.2-54.2); Mean Corpuscular Hemoglobin 28 PG (27-34); Mean Corpuscular Volume 90.8 FL (87-102); Mean Platelet Volume 11.1 FL (9.6-12.0); Monocytes # 0.6 10*3/uL (0.11-0.8); Monocytes % 9.9 % (1.7-12.7); Neutrophils # 4.3 10*3/uL (1.4-7.4); Neutrophils % 75.2 % (38.7-73.9); Platelet Count 65 T/CUMM (130-400); Red Blood Count 2.73 MC/CUMM (3.8-5.5); Red Cell Distribution Width 20.2 % (9.3-17.3); White Blood Count 5.8 T/CUMM (4-12)
[2017-06-07 05:53] LABS: Calcium 7.7 MG/DL (8.5-10.1); Magnesium 2.1 MG/DL (1.8-2.4); Osmolality,Calculated 288.7 MOS/KG (273-304); Potassium 4.1 MMOL/L (3.5-5.1)
[2017-06-07 05:57] LABS: Albumin 2.5 G/DL (3.4-5.0); Bilirubin,Direct 0.44 MG/DL (0.0-0.20); Bilirubin,Indirect 0.8 MG/DL (0.0-1.0); Bilirubin,Total 1.2 MG/DL (0.2-1.0)
[2017-06-07] MEDS: LEVOTHYROXINE 50 MCG TABLET PO SCH (06:01)
[2017-06-07] MEDS: INSULIN REGULAR 100 UNIT/ML SUBCUT SCH ×4 (09:09→20:44)
[2017-06-07] MEDS: ASPIRIN EC 81 MG TABLET PO SCH (09:12)
[2017-06-07] MEDS: DOXAZOSIN 4 MG TABLET PO SCH (09:12)
[2017-06-07] MEDS: CALCIUM ACETATE 667 MG CAPSULE PO SCH ×3 (09:12→17:23)
[2017-06-07] MEDS: METOPROLOL TARTRATE 25 MG TABLET PO SCH ×2 (09:13→20:44)
[2017-06-07] MEDS: PANTOPRAZOLE 40 MG VIAL IV SCH (17:23)
[2017-06-07] MEDS: ATORVASTATIN 10 MG TABLET PO SCH (20:43)
[2017-06-07] MEDS: CINACALCET 30 MG TABLET PO SCH (20:43)
[2017-06-07] MEDS: BIMATOPROST 0.01% OPH SOLN 2.5 ML BOTTLE BOTH EYES SCH (22:40)
[2017-06-08 06:10] LABS: Basophils % 0.2 % (0.0-0.8); Eosinophils # 0.2 10*3/uL (0.0-0.87); Eosinophils % 2.9 % (0.00-10.9); Hematocrit 25.4 VOL% (42.0-52.0); Hemoglobin 8.2 GM/DL (14.0-18.0); Immature Granulocytes % 1.6 %; Lymphocytes # 0.5 10*3/uL (1.4-4.0); Lymphocytes % 8.5 % (21.2-54.2); Mean Corpuscular HGB Conc 32.3 GM/DL (32-36); Mean Corpuscular Hemoglobin 28 PG (27-34); Mean Corpuscular Volume 86.1 FL (87-102); Mean Platelet Volume 10.9 FL (9.6-12.0); Monocytes # 0.7 10*3/uL (0.11-0.8); Monocytes % 10.6 % (1.7-12.7); Neutrophils # 4.7 10*3/uL (1.4-7.4); Neutrophils % 76.2 % (38.7-73.9); Platelet Count 82 T/CUMM (130-400); Red Blood Count 2.95 MC/CUMM (3.8-5.5); Red Cell Distribution Width 19.9 % (9.3-17.3); White Blood Count 6.1 T/CUMM (4-12)
[2017-06-08] MEDS: LEVOTHYROXINE 50 MCG TABLET PO SCH (06:14)
[2017-06-08 06:46] LABS: Magnesium 2.4 MG/DL (1.8-2.4); Osmolality,Calculated 283.7 MOS/KG (273-304); Potassium 3.9 MMOL/L (3.5-5.1)
[2017-06-08 07:06] LABS: Hypochromasia 1+; Microcytosis 1+; Spherocytes Slight
[2017-06-08 07:07] LABS: Acanthocytes Few; Ovalocytes Slight; Platelet Estimate Decreased
[2017-06-08] MEDS: DOXAZOSIN 4 MG TABLET PO SCH (08:51)
[2017-06-08] MEDS: METOPROLOL TARTRATE 25 MG TABLET PO SCH ×2 (08:51→20:28)
[2017-06-08] MEDS: ASPIRIN EC 81 MG TABLET PO SCH (08:51)
[2017-06-08] MEDS: CALCIUM ACETATE 667 MG CAPSULE PO SCH ×3 (08:51→17:12)
[2017-06-08] MEDS: INSULIN REGULAR 100 UNIT/ML SUBCUT SCH ×4 (08:52→20:28)
[2017-06-08] MEDS: PANTOPRAZOLE 40 MG VIAL IV SCH (17:12)
[2017-06-08] MEDS: ATORVASTATIN 10 MG TABLET PO SCH (20:28)
[2017-06-08] MEDS: CINACALCET 30 MG TABLET PO SCH (20:28)
[2017-06-08] MEDS: BIMATOPROST 0.01% OPH SOLN 2.5 ML BOTTLE BOTH EYES SCH (20:28)
[2017-06-09 04:00] LABS: Basophils % 0.2 % (0.0-0.8); Eosinophils # 0.2 10*3/uL (0.0-0.87); Eosinophils % 2.9 % (0.00-10.9); Hematocrit 24.6 VOL% (42.0-52.0); Immature Granulocytes % 0.9 %; Immature Granulocytes Absolute 0.05 #; Lymphocytes # 0.6 10*3/uL (1.4-4.0); Mean Corpuscular HGB Conc 32.5 GM/DL (32-36); Mean Corpuscular Hemoglobin 27 PG (27-34); Mean Corpuscular Volume 83.7 FL (87-102); Mean Platelet Volume 10.9 FL (9.6-12.0); Monocytes # 0.7 10*3/uL (0.11-0.8); Monocytes % 11.4 % (1.7-12.7); Neutrophils # 4.3 10*3/uL (1.4-7.4); Neutrophils % 74.6 % (38.7-73.9); Platelet Count 95 T/CUMM (130-400); Red Blood Count 2.94 MC/CUMM (3.8-5.5); Red Cell Distribution Width 19.9 % (9.3-17.3); White Blood Count 5.8 T/CUMM (4-12)
[2017-06-09 04:31] LABS: Calcium 7.4 MG/DL (8.5-10.1); Magnesium 2.2 MG/DL (1.8-2.4); Osmolality,Calculated 289.5 MOS/KG (273-304)
[2017-06-09 04:35] LABS: Albumin 2.3 G/DL (3.4-5.0); Bilirubin,Total 1.1 MG/DL (0.2-1.0); Calcium 7.6 MG/DL (8.5-10.1); Osmolality,Calculated 289.5 MOS/KG (273-304); Total Protein 6.8 G/DL (6.4-8.3)
[2017-06-09 05:16] LABS: Hypochromasia 1+; Microcytosis 1+; Platelet Estimate Decreased
[2017-06-09] MEDS: LEVOTHYROXINE 50 MCG TABLET PO SCH (06:15)
[2017-06-09] MEDS: INSULIN REGULAR 100 UNIT/ML SUBCUT SCH ×4 (08:05→21:38)
[2017-06-09] MEDS: ASPIRIN EC 81 MG TABLET PO SCH (09:07)
[2017-06-09] MEDS: CALCIUM ACETATE 667 MG CAPSULE PO SCH ×3 (09:07→16:41)
[2017-06-09] MEDS: DOXAZOSIN 4 MG TABLET PO SCH (09:07)
[2017-06-09] MEDS: METOPROLOL TARTRATE 25 MG TABLET PO SCH ×2 (09:08→21:38)
[2017-06-09] MEDS: PANTOPRAZOLE 40 MG VIAL IV SCH (16:42)
[2017-06-09] MEDS: ATORVASTATIN 10 MG TABLET PO SCH (21:38)
[2017-06-09] MEDS: CINACALCET 30 MG TABLET PO SCH (21:38)
[2017-06-09] MEDS: BIMATOPROST 0.01% OPH SOLN 2.5 ML BOTTLE BOTH EYES SCH (21:38)
[2017-06-10 06:00] LABS: Basophils % 0.3 % (0.0-0.8); Eosinophils # 0.2 10*3/uL (0.0-0.87); Eosinophils % 2.7 % (0.00-10.9); Hematocrit 25.9 VOL% (42.0-52.0); Hemoglobin 8.4 GM/DL (14.0-18.0); Immature Granulocytes % 0.9 %; Immature Granulocytes Absolute 0.06 #; Lymphocytes # 0.7 10*3/uL (1.4-4.0); Lymphocytes % 10.4 % (21.2-54.2); Mean Corpuscular HGB Conc 32.4 GM/DL (32-36); Mean Corpuscular Hemoglobin 28 PG (27-34); Mean Platelet Volume 11.5 FL (9.6-12.0); Monocytes # 0.7 10*3/uL (0.11-0.8); Monocytes % 10.5 % (1.7-12.7); Neutrophils # 4.9 10*3/uL (1.4-7.4); Neutrophils % 75.2 % (38.7-73.9); Platelet Count 125 T/CUMM (130-400); Red Blood Count 3.01 MC/CUMM (3.8-5.5); Red Cell Distribution Width 19.9 % (9.3-17.3); White Blood Count 6.6 T/CUMM (4-12)
[2017-06-10] MEDS: LEVOTHYROXINE 50 MCG TABLET PO SCH (06:23)
[2017-06-10 06:27] LABS: Calcium 7.6 MG/DL (8.5-10.1); Magnesium 2.4 MG/DL (1.8-2.4); Osmolality,Calculated 285.1 MOS/KG (273-304); Potassium 4.4 MMOL/L (3.5-5.1)
[2017-06-10] MEDS: INSULIN REGULAR 100 UNIT/ML SUBCUT SCH ×4 (08:50→21:21)
[2017-06-10] MEDS: CALCIUM ACETATE 667 MG CAPSULE PO SCH ×3 (08:50→17:28)
[2017-06-10] MEDS: DOXAZOSIN 4 MG TABLET PO SCH (12:56)
[2017-06-10] MEDS: METOPROLOL TARTRATE 25 MG TABLET PO SCH ×2 (12:57→21:21)
[2017-06-10] MEDS: ASPIRIN EC 81 MG TABLET PO SCH (12:57)
[2017-06-10 14:59] LABS: Hepatitis B Core Ab Result Negative (Negative); Hepatitis B Surface Ag Quant < 0.10 Index; Hepatitis B Surface Ag Result Negative (Negative)
[2017-06-10 15:52] LABS: Hepatitis C Virus Ab Quant 0.05 Index; Hepatitis C Virus Ab Result Negative (Negative)
[2017-06-10] MEDS: PANTOPRAZOLE 40 MG VIAL IV SCH (17:27)
[2017-06-10] MEDS: CINACALCET 30 MG TABLET PO SCH (21:20)
[2017-06-10] MEDS: ATORVASTATIN 10 MG TABLET PO SCH (21:20)
[2017-06-10] MEDS: BIMATOPROST 0.01% OPH SOLN 2.5 ML BOTTLE BOTH EYES SCH (21:21)
[2017-06-11] MEDS: LEVOTHYROXINE 50 MCG TABLET PO SCH (05:54)
[2017-06-11 05:58] LABS: Hepatitis B Surface Ab Result Positive
[2017-06-11] MEDS: DOXAZOSIN 4 MG TABLET PO SCH (09:43)
[2017-06-11] MEDS: ASPIRIN EC 81 MG TABLET PO SCH (09:44)
[2017-06-11] MEDS: CALCIUM ACETATE 667 MG CAPSULE PO SCH ×3 (09:44→17:19)
[2017-06-11] MEDS: METOPROLOL TARTRATE 25 MG TABLET PO SCH ×2 (09:44→21:14)
[2017-06-11] MEDS: INSULIN REGULAR 100 UNIT/ML SUBCUT SCH ×4 (09:44→21:14)
[2017-06-11] MEDS ORDERED: TUBERCULIN SKIN TEST 0.1 ML SYRINGE INTRADERM ONE (14:44)
[2017-06-11] MEDS: PANTOPRAZOLE 40 MG VIAL IV SCH (17:18)
[2017-06-11] MEDS: DEXTROSE 50% 25 GM/50 ML VIAL IV PRN (19:07)
[2017-06-11] MEDS: CINACALCET 30 MG TABLET PO SCH (21:14)
[2017-06-11] MEDS: ATORVASTATIN 10 MG TABLET PO SCH (21:14)
[2017-06-11] MEDS: BIMATOPROST 0.01% OPH SOLN 2.5 ML BOTTLE BOTH EYES SCH (21:15)
[2017-06-12] MEDS: LEVOTHYROXINE 50 MCG TABLET PO SCH (05:42)
[2017-06-12] MEDS ORDERED: EPOETIN ALFA 10,000 UNIT/1 ML VIAL IV PRN (07:50)
[2017-06-12] MEDS: INSULIN REGULAR 100 UNIT/ML SUBCUT SCH ×2 (09:04→14:21)
[2017-06-12 09:30] LABS: Osmolality,Calculated 291.8 MOS/KG (273-304); Potassium 4.7 MMOL/L (3.5-5.1)
[2017-06-12] MEDS: CALCIUM ACETATE 667 MG CAPSULE PO SCH ×2 (10:06→12:03)
[2017-06-12] MEDS: ASPIRIN EC 81 MG TABLET PO SCH (10:07)
[2017-06-12] MEDS: DOXAZOSIN 4 MG TABLET PO SCH (10:07)
[2017-06-12] MEDS: METOPROLOL TARTRATE 25 MG TABLET PO SCH (10:07)
[2017-06-12 13:33] VITALS: BP 156/74
== END 2017-06-12 15:00 | disposition swing bed (61) | DRG 981 ==
LOC: EDUNIT# → EDBD → N.ED 12:06 → SUATTDRO 16:54 → N.EDINP 17:21 → N.CC 17:42 → N.TELES 06-05 11:04
PROVIDERS: ATTEND Internal Medicine
PROC: CLMICRA (2017-06-04 10:15)

== ENCOUNTER 2017-09-21 20:49 | Observation (INO) ==
[2017-09-21 22:49] LABS: Basophils % 0.4 % (0.0-0.8); Eosinophils # 0.1 10*3/uL (0.0-0.87); Eosinophils % 2.6 % (0.00-10.9); Hematocrit 41.6 VOL% (42.0-52.0); Hemoglobin 13.1 GM/DL (14.0-18.0); Immature Granulocytes % 0.4 %; Immature Granulocytes Absolute 0.02 #; Lymphocytes # 0.8 10*3/uL (1.4-4.0); Lymphocytes % 14.1 % (21.2-54.2); Mean Corpuscular HGB Conc 31.5 GM/DL (32-36); Mean Corpuscular Hemoglobin 29 PG (27-34); Mean Corpuscular Volume 92.9 FL (87-102); Mean Platelet Volume 10.7 FL (9.6-12.0); Monocytes # 0.7 10*3/uL (0.11-0.8); Monocytes % 12.6 % (1.7-12.7); NRBC # 0.02 10*3/uL; Neutrophils # 3.8 10*3/uL (1.4-7.4); Neutrophils % 69.9 % (38.7-73.9); Platelet Count 135 T/CUMM (130-400); Red Blood Count 4.48 MC/CUMM (3.8-5.5); Red Cell Distribution Width 18.1 % (9.3-17.3); White Blood Count 5.4 T/CUMM (4-12)
[2017-09-22 01:16] LABS: Calcium 9.2 MG/DL (8.5-10.1); Osmolality,Calculated 282.8 MOS/KG (273-304); Potassium 4.3 MMOL/L (3.5-5.1)
[2017-09-22] MEDS ORDERED: DEXTROSE 50% 25 GM/50 ML VIAL IV PRN (02:20)
[2017-09-22] MEDS ORDERED: GLUCAGON 1 MG VIAL IM PRN (02:20)
[2017-09-22] MEDS ORDERED: CLARITHROMYCIN 500 MG TABLET PO SCH (02:20)
[2017-09-22] MEDS ORDERED: ONDANSETRON 4 MG/2 ML VIAL IV PRN (02:20)
[2017-09-22] MEDS ORDERED: EPOETIN ALFA 10,000 UNIT/1 ML VIAL IV PRN (02:20)
[2017-09-22] MEDS ORDERED: METHOCARBAMOL 750 MG TABLET PO PRN (02:38)
[2017-09-22] MEDS: SODIUM CHLORIDE 0.9% 1,000 ML IV SCH ×3 (03:56→22:06)
[2017-09-22] MEDS: LEVOTHYROXINE 50 MCG TABLET PO SCH (07:46)
[2017-09-22] MEDS: INSULIN REGULAR 100 UNIT/ML SUBCUT SCH ×4 (09:32→22:07)
[2017-09-22] MEDS: OLMESARTAN 20 MG TABLET PO SCH (09:49)
[2017-09-22] MEDS: PANTOPRAZOLE 40 MG TABLET PO SCH (09:49)
[2017-09-22] MEDS: CALCIUM ACETATE 667 MG CAPSULE PO SCH ×3 (09:49→22:08)
[2017-09-22] MEDS: MINOXIDIL 10 MG TABLET PO SCH (09:49)
[2017-09-22] MEDS: DOCUSATE SODIUM 100 MG CAPSULE PO SCH ×2 (09:50→22:08)
[2017-09-22] MEDS: METOPROLOL TARTRATE 25 MG TABLET PO SCH ×2 (09:50→22:08)
[2017-09-22] MEDS: GABAPENTIN 100 MG CAPSULE PO SCH ×3 (10:49→22:07)
[2017-09-22] MEDS ORDERED: ATORVASTATIN 10 MG TABLET PO SCH (21:00)
[2017-09-22] MEDS ORDERED: BIMATOPROST 0.01% OPH SOLN 2.5 ML BOTTLE BOTH EYES SCH (21:00)
[2017-09-23] MEDS: SODIUM CHLORIDE 0.9% 1,000 ML IV SCH (06:17)
[2017-09-23] MEDS: LEVOTHYROXINE 50 MCG TABLET PO SCH (06:47)
[2017-09-23] MEDS: GABAPENTIN 100 MG CAPSULE PO SCH (09:04)
[2017-09-23] MEDS: OLMESARTAN 20 MG TABLET PO SCH (09:04)
[2017-09-23] MEDS: DOCUSATE SODIUM 100 MG CAPSULE PO SCH (09:05)
[2017-09-23] MEDS: PANTOPRAZOLE 40 MG TABLET PO SCH (09:05)
[2017-09-23] MEDS: CALCIUM ACETATE 667 MG CAPSULE PO SCH ×2 (09:05→13:31)
[2017-09-23] MEDS: METOPROLOL TARTRATE 25 MG TABLET PO SCH (09:08)
[2017-09-23] MEDS: MINOXIDIL 10 MG TABLET PO SCH (09:08)
[2017-09-23] MEDS: INSULIN REGULAR 100 UNIT/ML SUBCUT SCH ×2 (09:09→13:31)
[2017-09-23 11:56] VITALS: BP 103/50
== END 2017-09-23 13:00 | disposition home or self-care (01) ==
LOC: N.EDINP 20:49 → N.ED 20:49 → N.3E 09-22 01:35

== ENCOUNTER 2017-11-07 08:46 | Inpatient (IN) ==
[2017-11-07 11:04] LABS: Basophils % 0.2 % (0.0-0.8); Eosinophils # 0.1 10*3/uL (0.0-0.87); Eosinophils % 1.1 % (0.00-10.9); Hematocrit 37.3 VOL% (42.0-52.0); Hemoglobin 11.9 GM/DL (14.0-18.0); Immature Granulocytes % 0.7 %; Immature Granulocytes Absolute 0.03 #; Lymphocytes # 0.5 10*3/uL (1.4-4.0); Lymphocytes % 10.6 % (21.2-54.2); Mean Corpuscular HGB Conc 31.9 GM/DL (32-36); Mean Corpuscular Hemoglobin 28 PG (27-34); Mean Corpuscular Volume 88.6 FL (87-102); Mean Platelet Volume 11.5 FL (9.6-12.0); Monocytes # 0.6 10*3/uL (0.11-0.8); Monocytes % 13.6 % (1.7-12.7); Neutrophils # 3.3 10*3/uL (1.4-7.4); Neutrophils % 73.8 % (38.7-73.9); Platelet Count 117 T/CUMM (130-400); Red Blood Count 4.21 MC/CUMM (3.8-5.5); Red Cell Distribution Width 17.5 % (9.3-17.3); White Blood Count 4.4 T/CUMM (4-12)
[2017-11-07 11:25] LABS: Bilirubin,Total 0.7 MG/DL (0.2-1.0); Calcium 10.6 MG/DL (8.5-10.1); Potassium 4.5 MMOL/L (3.5-5.1); Total Protein 9.2 G/DL (6.4-8.3)
[2017-11-07 12:40] LABS: Burr Cells 2+; Target Cells Slight
[2017-11-07] MEDS ORDERED: ALBUTEROL 2.5 MG/3 ML NEB RESP TX PRN (13:31)
[2017-11-07] MEDS ORDERED: DEXTROSE 50% 25 GM/50 ML VIAL IV PRN (13:34)
[2017-11-07] MEDS ORDERED: GLUCAGON 1 MG VIAL IM PRN (13:34)
[2017-11-07] MEDS ORDERED: ACETAMINOPHEN 325 MG TABLET PO PRN (13:51)
[2017-11-07] MEDS ORDERED: ONDANSETRON 4 MG/2 ML VIAL IV PRN (13:51)
[2017-11-07] MEDS ORDERED: LEVOFLOXACIN INJ 100 ML IV ONE (13:57)
[2017-11-07] MEDS ORDERED: LEVOFLOXACIN INJ 500 MG in PREMIX 1 EACH IV SCH (14:00)
[2017-11-07] MEDS ORDERED: LEVOFLOXACIN INJ 500 MG in PREMIX 1 EACH IV ONE (14:00)
[2017-11-07] MEDS ORDERED: LEVOFLOXACIN INJ 750 MG in PREMIX 1 EACH IV ONE (14:00)
[2017-11-07] MEDS: INSULIN LISPRO 100 UNIT/ML SUBCUT SCH ×2 (17:59→21:08)
[2017-11-07] MEDS: ALBUTEROL/IPRATROPIUM 3 ML NEB RESP TX SCH (19:45)
[2017-11-07] MEDS: ENOXAPARIN 30 MG/0.3 ML SYRINGE SUBCUT SCH (21:19)
[2017-11-08] MEDS: ALBUTEROL/IPRATROPIUM 3 ML NEB RESP TX SCH ×5 (00:47→23:45)
[2017-11-08 05:44] LABS: Basophils % 0.4 % (0.0-0.8); Eosinophils # 0.1 10*3/uL (0.0-0.87); Eosinophils % 1.1 % (0.00-10.9); Hematocrit 31.5 VOL% (42.0-52.0); Immature Granulocytes % 0.7 %; Immature Granulocytes Absolute 0.03 #; Lymphocytes # 0.5 10*3/uL (1.4-4.0); Lymphocytes % 11.2 % (21.2-54.2); Mean Corpuscular HGB Conc 31.7 GM/DL (32-36); Mean Corpuscular Hemoglobin 28 PG (27-34); Mean Platelet Volume 12.2 FL (9.6-12.0); Monocytes # 0.5 10*3/uL (0.11-0.8); Monocytes % 12.1 % (1.7-12.7); Neutrophils # 3.3 10*3/uL (1.4-7.4); Neutrophils % 74.5 % (38.7-73.9); Platelet Count 139 T/CUMM (130-400); Red Blood Count 3.54 MC/CUMM (3.8-5.5); Red Cell Distribution Width 17.1 % (9.3-17.3); White Blood Count 4.5 T/CUMM (4-12)
[2017-11-08 06:15] LABS: Calcium 9.9 MG/DL (8.5-10.1); Osmolality,Calculated 288.1 MOS/KG (273-304); Potassium 3.8 MMOL/L (3.5-5.1)
[2017-11-08 06:27] LABS: Band Neutrophils 7 % (0-10); Burr Cells Few; Eosinophils 2 % (0-10); Lymphocytes 10 % (20-55); Platelet Estimate Decreased; Poikilocytosis Few; Segmented Neutrophils 73 % (50-85); Total Cells Counted 100
[2017-11-08] MEDS: INSULIN LISPRO 100 UNIT/ML SUBCUT SCH ×4 (08:07→21:50)
[2017-11-08] MEDS: CALCIUM ACETATE 667 MG CAPSULE PO SCH ×3 (08:33→16:45)
[2017-11-08] MEDS: LEVOTHYROXINE 50 MCG TABLET PO SCH (08:34)
[2017-11-08] MEDS: DOXAZOSIN 4 MG TABLET PO SCH (08:34)
[2017-11-08] MEDS: METOPROLOL TARTRATE 25 MG TABLET PO SCH ×2 (08:34→21:36)
[2017-11-08] MEDS: CLOPIDOGREL 75 MG TABLET PO SCH (08:34)
[2017-11-08] MEDS: ASPIRIN EC 81 MG TABLET PO SCH (08:34)
[2017-11-08] MEDS: PANTOPRAZOLE 40 MG TABLET PO SCH (08:34)
[2017-11-08] MEDS ORDERED: ATORVASTATIN 10 MG TABLET PO SCH (21:00)
[2017-11-08] MEDS ORDERED: BIMATOPROST 0.01% OPH SOLN 2.5 ML BOTTLE BOTH EYES SCH (21:00)
[2017-11-08] MEDS ORDERED: CINACALCET 30 MG TABLET PO SCH (21:00)
[2017-11-08] MEDS: ENOXAPARIN 30 MG/0.3 ML SYRINGE SUBCUT SCH (21:37)
[2017-11-09 04:24] LABS: Calcium 10.4 MG/DL (8.5-10.1); Osmolality,Calculated 282.7 MOS/KG (273-304); Potassium 3.7 MMOL/L (3.5-5.1)
[2017-11-09] MEDS: LEVOTHYROXINE 50 MCG TABLET PO SCH (07:02)
[2017-11-09] MEDS: ALBUTEROL/IPRATROPIUM 3 ML NEB RESP TX SCH ×2 (07:05→13:18)
[2017-11-09] MEDS: INSULIN LISPRO 100 UNIT/ML SUBCUT SCH ×2 (08:19→12:34)
[2017-11-09] MEDS: DOXAZOSIN 4 MG TABLET PO SCH (08:40)
[2017-11-09] MEDS: CLOPIDOGREL 75 MG TABLET PO SCH (08:41)
[2017-11-09] MEDS: METOPROLOL TARTRATE 25 MG TABLET PO SCH (08:41)
[2017-11-09] MEDS: CALCIUM ACETATE 667 MG CAPSULE PO SCH ×2 (08:41→13:24)
[2017-11-09] MEDS: ASPIRIN EC 81 MG TABLET PO SCH (08:41)
[2017-11-09] MEDS: PANTOPRAZOLE 40 MG TABLET PO SCH (08:41)
[2017-11-09 12:08] VITALS: BP 148/62
[2017-11-09] MEDS ORDERED: LEVOFLOXACIN INJ 750 MG in PREMIX 1 EACH IV ONE (15:00)
[2017-11-11] MEDS ORDERED: LEVOFLOXACIN INJ 500 MG in PREMIX 1 EACH IV SCH (15:00)
== END 2017-11-09 14:56 | disposition home or self-care (01) | DRG 193 ==
LOC: N.ED 08:46 → SUATTDRO 12:33 → N.EDINP 12:33 → N.2E 15:41
PROVIDERS: ADMIT Internal Medicine; ATTEND Internal Medicine